=== PATIENT | female | born 1960 | race Caucasian/White ===

== ENCOUNTER 2017-09-11 02:21 | Emergency (ER) | payer SELFPAY ==
[2017-09-11] MEDS ORDERED: LIDOCAINE 1%/EPINEPHrine 1:100,000 SOLN 20 ML VIAL INFIL (03:00)
[2017-09-11] MEDS: LIDOCAINE 1%/EPINEPHrine 1:100,000 SOLN 50 ML VIAL INFIL (04:24)
== END 2017-09-11 04:37 | disposition home or self-care (01) ==
LOC: NEPE 02:21
DX: S01.01XA Laceration without foreign body of scalp, initial encounter (principal); M54.2 Cervicalgia; W01.0XXA Fall on same level from slipping, tripping and stumbling without subsequent striking against object, initial encounter
CPT/HCPCS: 12002; 70450; 70486; 72125; 73030; 73130; 99284-25